=== PATIENT | female | born 1985 | race Caucasian/White ===

== ENCOUNTER 2018-07-25 10:00 | Inpatient (IN) ==
[~2018-07-25 10:00] MED LIST: Methylergonovine 0.2 MG/ML AMPUL IM ONE; miSOPROStol 100 MCG TABLET PO ONE
[2018-07-25] MEDS ORDERED: *HR* Nalbuphine 10 MG/ML AMPUL IVP PRN (10:59)
[2018-07-25] MEDS ORDERED: Metoclopramide 10 MG/2 ML VIAL IVP PRN (10:59)
[2018-07-25] MEDS ORDERED: Ondansetron 4 MG/2 ML VIAL IVP PRN (10:59)
[2018-07-25] MEDS ORDERED: miSOPROStol 25 MCG TABLET VG PRN (10:59)
[2018-07-25] MEDS ORDERED: Naloxone 0.4 MG/ML INJ IVP PRN (10:59)
[2018-07-25] MEDS ORDERED: Famotidine 20 MG/2 ML VIAL IVP PRN (10:59)
[2018-07-25] MEDS ORDERED: Ringers Solution, Lactated 1,000 ML IVC SCH (11:00)
--- NOTE | 2018-07-25 11:13 | OB/GYN History & Physical ---
Date of Encounter: 07/25/18 Time of Encounter: 11:09 Assessment and Plan (1) 39 weeks gestation of Current visit: Yes Status: Acute Admit for IOL GBS negative Cytotec with Intracervical christopher Patient may have nubain/epidural upon request Consider AROM and/or pitocin for augmentation Anticipate vaginal delivery POC per consult with Dr Carmen History of Present Illness Chief complaint: IOL HPI: Ms. Stone is a 32 year old at 39 weeks 5 days that presents to labor an d delivery for elective IOL. She has been seen by Dr Carmen for her care. She has had a normal course. She states positive movement. She denies headache, vision changes, epigastric pain, leaking of fluid, vaginal bleeding/discharge, and contractions. Labs: GBS negative Blood type HIV - Nonreactive Hep B - pending RPR - neg Varicella - positive (immune) Rubella - positive (immune) Past Med Surg Social Fam HX - Family History Father Adopted: Mikes: walt [email or web address] Family Member Ethnicity: Non- Living Status: Still Living Hx Family Cardiac Disorders: Yes (hypertension) Hx Family Respiratory Disorders: No Hx Family Cancer: No Hx Family GI Disorders: No Hx Family Genitourinary Disorders: No Hx Family Endocrine Disorder: No Hx Family Musculoskeletal Disorders: No Hx Family Neuromuscular Disorders: No Hx Family Neurologic Disorders: No Hx Family HEENT Disorders: No Hx Family Autoimmune Disorders: No Hx Family Reproductive Disorders: No Hx Family Psychosocial Disorders: No Hx Family Medical Disorders: No Obstetrical History - Pregnancies : 5 Para: 1 Term: 1 : 0 Ab's: 3 Livin Medications and Allergies Ascorbic Acid [Vitamin C] 120 gm PO DAILY 07/25/18 [History] Calcium Magnesium Caplet 1 tab PO DAILY 07/25/18 [History] Fish Oil + Vitamin D-3 Softgel 1 tab PO DAILY 07/25/18 [History] Pnv Plus Multivit Tab 1 tab PO DAILY 07/25/18 [History] Allergy/AdvReac Type Severity Reaction Status Date / Time No Known Drug Allergies AdvReac Unknown See Verified 07/25/18 10:52 Comments Review of System OB All systems PM: reviewed and no additional remarkable complaints except as stated Exam - Constitutional Constitutional: well developed, well nourished, no acute distress, average body habitus - HEENT HEENT: Normocephaly, Mucus Membranes Moist - Neck Neck exam: full ROM - Lungs Respiratory exam: CTAB - Cardiovascular Cardiovascular exam: RRR, +S1, +S2 - Abdomen Abdomen: Present: bowel sounds normal, gravid, non tender - Extremities Extremities exam: normal capillary refill, normal inspection, radial pulses palpable and symmetrical Deep Tendon Reflex Grade: 2+ Normal - Vulva Vulva: bilateral: normal - Vagina Vagina: Present: normal moisture - Cervix Dilation: 2 Effacement: 80 Station: -2 - Uterus Uterus exam: Present: normal size, normal contour - Anus/Rectum Anus/Rectum: Present: normal perianal skin Results Result Diagrams: 07/25/18 11:10 All other labs normal. - VTE Reasons for not Prescribing Prophylaxis: Treatment not Indicated - Low risk for VTE
[2018-07-25 11:42] LABS: Basophils # 0.1 K/mcL (0.0-0.2); Basophils % 0.5 %; Eosinophils # 0.1 K/mcL (0.0-0.6); Eosinophils % 0.8 %; Hematocrit 34.5 % (35.3-44.9); Hemoglobin 11.9 g/dL (11.5-15.4); Lymphocytes # 3.1 K/mcL (0.6-4.6); Lymphocytes % 22.6 %; Mean Corpuscular HGB Conc 34.5 g/dL (31.6-35.5); Mean Corpuscular Hemoglobin 32.8 pg (28.0-33.3); Mean Platelet Volume 10.1 fL (9.4-12.4); Monocytes # 1.3 K/mcL (0.0-1.3); Monocytes % 9.4 %; Neutrophils # 9.1 K/mcL (1.6-8.9); Platelet Count 206 K/mcL (140-400); Red Blood Count 3.63 M/mcL (3.82-4.97); Segmented Neutrophils % 65.7 %
[2018-07-25 12:04] LABS: Amphetamine Screen,Urine Negative ng/mL (Cutoff=1000); Barbiturate Screen,Urine Negative ng/mL (Cutoff=200); Benzodiazepines Screen,Urine Negative ng/mL (Cutoff=200); Cannabinoid Screen,Urine Negative ng/mL (Cutoff = 50); Cocaine Screen,Urine Negative ng/mL (Cutoff= 300); Opiate Screen,Urine Negative ng/mL (Cutoff=300); Phencyclidine Screen,Urine Negative ng/mL (Cutoff=25)
--- NOTE | 2018-07-25 14:04 | OB Labor Progress Note ---
Date of Encounter: 07/25/18 Time of Encounter: 14:02 Labor Progress Note - Subjective Subjective: Patient breathing through contractions - Vital Signs Vital Signs: VSS - Cervix Cervix: 5/80/-1 - Heart Tones Heart Tones: 120 category I tracing - [place]: Contractions every 3-4 minutes - Interventions Interventions: AROM for large amount of clear fluid. Patient and fetus tolerated well. Patient declines FSE at this time - Plan Plan: Continue routine labor management GBS negative Consider pitocin if needed for augmentation Patient may have nubain/epidural upon request Anticipate vaginal delivery POC per consult with Dr Carmen
--- NOTE | 2018-07-25 16:10 | OB Labor Progress Note ---
Date of Encounter: 07/25/18 Time of Encounter: 16:09 Labor Progress Note - Subjective Subjective: patient tolerating labor well still not wanting any pain medication - Cervix Cervix: /0 - Heart Tones Heart Tones: heart tones 140s reactive - [place]: Contractions every 2 minutes - Plan Plan: Continue current plan planus and to anticipate vaginal delivery
[2018-07-25] MEDS ORDERED: Oxytocin 20 units/ LR 1000 mL 20 UNIT/1,000 ML BAG IVC ONE ×2 (17:08→18:08)
[2018-07-25] MEDS ORDERED: Acetaminophen 325 MG TABLET PO PRN ×2 (18:08→22:29)
[2018-07-25] MEDS ORDERED: Sennosides 8.6 MG TABLET PO PRN ×2 (18:08→22:29)
[2018-07-25] MEDS ORDERED: Ibuprofen 600 MG TABLET PO PRN (18:08)
[2018-07-25] MEDS ORDERED: Oxytocin 20 units/ LR 1000 mL 20 UNIT/1,000 ML BAG IVC SCH ×2 (18:08→22:29)
[2018-07-25] MEDS ORDERED: Benzocaine/Menthol 56 GM AEROSOL SPRAY TP PRN ×2 (18:08→22:29)
--- NOTE | 2018-07-25 18:14 | OB/GYN Procedure Note ---
Delivery - Delivery Date: 07/25/18 Provider: Sukumar Carmen Intrapartum events: none Delivery induction: christopher, misoprostol Delivery augmentation: rupture of membranes Delivery monitor: external FHT, external uterine Anesthesia: local - (s) Infant A Infant Delivery Date: 07/25/18 Infant Delivery Time: 17:19 Presentation: vertex Position: KENDALL Route of delivery: Gender: Female Viability: Viable Pounds: 6 Ounces: 14 Weight Gram: 3.12 kg at 1 minute: 7 at 5 mins: 9 Shoulder Dystocia: not encountered Specimens collected: cord blood Placenta: spontaneous, uterine exploration, retained (membranes) Cord: nuchal cord, true knot, nuchal reduced - Repair Episiotomy: none Laceration Description: Periurethral (bilateral), Perineal - 2nd Degree - Complications Delivery complications: none Delivery comments: Patient is a 32-year-old 5 per 1031 at 39-5/7 weeks who presented for induction of labor secondary to term with favorable cervix patient was induced with a Christopher catheter and oral Cytotec. Catheter was out within one hour of placement at approximately 2-3 hours patient did have artificial rupture membranes clear fluid patient did not require an epidural she progressed appropriately became complete and pushed approximately 3 times delivering a viable female in right occiput anterior presentation at 1719. Was a nuchal 1 loose and reduced there was no meconium the was bulb suctioned on the abdomen. Apgars were 7 at 1 minute and 9 at 5 minute infant weight was 6 lbs. 14 oz. Placenta was then delivered spontaneously with a three-vessel cord she was noted to have a true knot in the cord also. [employer] D[employer] Room Attendant was Dr. Carmen anesthesia local, estimated blood loss was 400 mL. She had a second- degree perineal laceration and bilateral periurethral laceration repaired with a 3-0 and 4-0 Vicryl in usual fashion. Cervix and vagina was visualized intact. She had moderate amount of bleeding uterus was explored she was noted to have retained membranes were removed and bleeding significantly slowed down. No other pathology was seen patient will be observed 2 hours before being taken floor. All needles lap sponge counts were correct 3 - Disposition Mom disposition: stable in LDR disposition: stable in LDR
[2018-07-25] MEDS ORDERED: Ringers Solution, Lactated 1,000 ML ONE ×2 (18:55→23:48)
[2018-07-25] MEDS ORDERED: *HR* Succinylcholine 200 MG/10 ML VIAL IVP ONE (19:25)
[2018-07-25] MEDS ORDERED: Dexamethasone 4 MG/ML VIAL ONE (19:25)
[2018-07-25] MEDS ORDERED: Ondansetron 4 MG/2 ML VIAL ONE (19:25)
[2018-07-25] MEDS ORDERED: *HR* FentaNYL (PF) 100 MCG/2 ML VIAL ONE (19:25)
[2018-07-25] MEDS ORDERED: Lidocaine -MPF 2% 5 ML VIAL ONE (19:25)
[2018-07-25] MEDS ORDERED: *HR* Propofol 200 MG/20 ML VIAL IVP ONE (19:25)
[2018-07-25] MEDS ORDERED: *HR* Midazolam HCl 2 MG/2 ML VIAL ONE (19:25)
--- NOTE | 2018-07-25 19:29 | Anesthesia Evaluation PreOp ---
Date of Encounter: 07/25/18 Time of Encounter: 18:49 - Past History Planned Operation: emergency D&C for retained placenta Cardiac History: Denies any Significant Hx Pulmonary History: Denies Any Significant HX PERFORMANCE IMPROVEMENT DIRECTOR History: Denies Any Significant HX Other Medical History: Other (Crohn's disease) Anesthesia History: No Prior Anesthetic Complications, Past Anesthesia (multiple colonoscopies, breast augmentation. No problems with GA. No FHAP.) : No Alcohol Use: none Drug use: none Medications and Allergies Ascorbic Acid [Vitamin C] 120 gm PO DAILY 07/25/18 [History] Calcium Magnesium Caplet 1 tab PO DAILY 07/25/18 [History] Fish Oil + Vitamin D-3 Softgel 1 tab PO DAILY 07/25/18 [History] Pnv Plus Multivit Tab 1 tab PO DAILY 07/25/18 [History] Allergy/AdvReac Type Severity Reaction Status Date / Time No Known Drug Allergies AdvReac Unknown See Verified 07/25/18 10:52 Comments - Meds/Allergy Pre-op Review Medications Reviewed: Yes Allergies Reviewed: Yes Beta Blockers on Current Med List: No Anesthesia Results - Labs 07/25/18 11:10 Anesthesia Exam VSS Height: 1.62cm Weight: 79 kg NPO (# of Hours): >8 solids, clears 2 hrs. Pain Scale: 0 Pain Scale Used: Numeric (1 - 10) - HEENT Pupil (Motor): Pupils equal, EOMI Mallampati: II Teeth: Normal Oral Opening: Greater than 3 - PERFORMANCE IMPROVEMENT DIRECTOR LOC: Oriented PERFORMANCE IMPROVEMENT DIRECTOR Motor: Normal RUE, Normal LUE, Normal RLE, Normal LLE, Normal Face PERFORMANCE IMPROVEMENT DIRECTOR Sensory: Normal: RUE, LUE, RLE, LLE, Face - Cardiac Rhythm: Regular - Pulmonary Breath Sounds: bilateral Clear Respiratory Effort: Symmetrical Anesthesia Assess/Plan ASA Score: 2, E Level of consciousness: Cooperative, Oriented, Tranquil Anesthetic Plan: General Monitoring Plan: Standard Monitors Recovery Plan: PACU
[2018-07-25] MEDS ORDERED: *HR* Morphine 2 MG/ML SYRINGE IVP PRN (19:31)
[2018-07-25] MEDS ORDERED: *HR* HYDROmorphone (PF) 1 MG/ML SYRINGE IVP PRN (19:31)
[2018-07-25] MEDS ORDERED: Acetaminophen IV 1,000 MG/100 ML INFUS..BTL IVPB ONE (19:31)
[2018-07-25] MEDS ORDERED: Ondansetron 4 MG/2 ML VIAL IVP ONE (19:31)
[2018-07-25] MEDS ORDERED: *HR* Promethazine 25 MG/ML VIAL IVP PRN (19:31)
--- NOTE | 2018-07-25 19:42 | Operative Note ---
Date of procedure: 07/25/18 Pre-op diagnosis: status post vag delivery, active vag bleeding, retained placenta Post-op diagnosis: same Procedure: Dilatation and curettage Complications: none Anesthesia: GETA Surgeon: Sukumar Carmen Was there an nursing assistant present: No Estimated blood loss (cc): 300 Specimen: none Condition: stable Disposition: other (labor and delivery recovery room) Procedure in Detail: patient is status post vag delivery who had some retained placenta which I was able to remove at bedside and felt like a got everything out. Approximate 1 hour after delivering I was called to see the patient due to large amount of blood clot noted on the perineum we did explore the uterus and another approximately 400 mL of blood out of the endometrial cavity. We attempted a bedside curettage with both ring forceps and a banjo curet was able to remove some tissue but became so uncomfortable for the patient because she did not have an epidural in place we decided it would be best for the patient to discontinue the operating room be placed to sleep and D&C performed there. Procedure: Patient was taken the operating room where general anesthesia was found be adequate she was placed in the dorsal lithotomy position prepped and draped in usual fashion. Timeout was then obtained bimanual examination expressed approximately 100 mL of clot and I could not feel any material within the cavity a banjo curet was used D&C was performed removing a little bit more tissue but I feel like most of it in the room patient was observed started to bleed moderately again cavity was reevaluated again could not feel anything in the endometrium 0.2 mg Methergine IM was then given uterus massaged and bleeding stopped we observe the patient again for another 5 minutes no active bleeding noted her second-degree perineal laceration had Apart from All the Manipulation This Was Reapproximated Again with a 3-0 Vicryl in Usual Fashion. 600 g of Cytotec Was Then Placed Rectally Endometrial Cavity Was Palpated One More Time Cavity Was Completely Contracted down and No Significant Bleeding Noted. [place] Catheter Was Placed at This Time and the Left in Place until We Know Patient Is Not Actively Bleeding Anymore. The Procedure Was Then Terminated All [place] Lap Sponge Counts Were Correct 3 She Did Receive Preoperative Antibiotics Patient Was Taken Recovery Room and to the Floor Once Stable.
--- NOTE | 2018-07-25 21:19 | Anesthesia Evaluation Post Op ---
Date of Encounter: 07/25/18 Time of Encounter: 21:05 - Vital Signs Vital Signs: VSS throughout PACU stay - Lungs Lungs: Clear Ascult./Percussion - Airway Airway: Non-obstructed - Cardiovascular Regular Rate - Mental Status Mental Status: Alert & Oriented, Answers Appropriately - Pain Pain Scale: 3 Pain Scale used: Numeric (1 - 10) - Nausea Vomiting Nausea Vomiting: Not Present - Hydration Hydration: NPO, [place] catheter - Discharge PostOp Status: Transfer Patient to floor
[2018-07-25] MEDS ORDERED: *HR* OxyCODONE/APAP 5/325 TABLET PO PRN (22:29)
[2018-07-26] MEDS: Ibuprofen 600 MG TABLET PO PRN ×4 (02:11→20:50)
--- NOTE | 2018-07-26 03:38 | Anesthesia Evaluation Post Op ---
Date of Encounter: 07/26/18 Time of Encounter: 00:10 - Vital Signs Vital Signs: VSS throughout pacu stay. - Lungs Lungs: Clear Ascult./Percussion - Airway Airway: Non-obstructed - Cardiovascular Regular Rate - Mental Status Mental Status: Alert & Oriented, Answers Appropriately - Pain Pain Scale: 3 Pain Scale used: Numeric (1 - 10) - Nausea Vomiting Nausea Vomiting: Not Present - Hydration Hydration: NPO, [place] catheter - Discharge PostOp Status: Transfer Patient to floor
[2018-07-26 04:21] LABS: Basophils % 0.2 %; Hematocrit 25.6 % (35.3-44.9); Immature Granulocytes % 0.8 % (0-4); Lymphocytes # 2.7 K/mcL (0.6-4.6); Lymphocytes % 12.8 %; Mean Corpuscular HGB Conc 33.6 g/dL (31.6-35.5); Mean Corpuscular Volume 98.1 fL (83.0-100.0); Monocytes # 1.3 K/mcL (0.0-1.3); Monocytes % 6.1 %; Platelet Count 176 K/mcL (140-400); Red Blood Count 2.61 M/mcL (3.82-4.97); Segmented Neutrophils % 80.1 %
[2018-07-26 04:46] LABS: Hemoglobin 8.6 g/dL (11.5-15.4); Neutrophils # 17.1 K/mcL (1.6-8.9)
[2018-07-26] MEDS: Prenatal Vit/FA 1 EACH TABLET PO SCH (08:43)
[2018-07-26] MEDS ORDERED: Prenatal Vit/FA 1 EACH TABLET PO SCH (09:00)
--- NOTE | 2018-07-26 10:09 | OB/GYN Progress Note ---
Date of Encounter: 07/26/18 Time of Encounter: 10:05 - Assessment and Plan (1) Vaginal delivery Current Visit: Yes Status: Acute Continue routine care Ice pack when necessary Dermoplast when necessary Anticipate discharge home tomorrow (2) anemia Current Visit: Yes Status: Acute Recheck CBC tomorrow morning Increase iron supplementation to twice a day (3) Breast feeding status of mother Current Visit: Yes Status: Acute consult when necessary Subjective - Subjective Principal diagnosis: s/p with PP D&C Interval history: Feeling well. Out of bed without dizziness. Some perineal discomfort-using ice pack. Cramping minimal, using ibuprofen. every 2-3 hours. Some nipple soreness. Voiding without difficulty. Passing flatus, no BM yet. Tolerating regular diet. Patient reports: appetite normal, voiding normally, pain well controlled, ambulating normally [place]: doing well, nursing well Objective - Latest Vital Signs Latest vital signs: Vital Signs Temp Pulse Resp BP Pulse Ox 07/26/18 08:30 98.4 F 77 12 116/77 97 07/26/18 03:50 99.0 F 85 16 115/67 97 07/26/18 00:15 98.2 F 88 16 128/76 98 07/25/18 23:15 97.6 F 83 14 113/79 97 07/25/18 22:45 98.1 F 82 14 117/78 97 07/25/18 22:15 98.8 F 78 16 115/83 98 Intake and Output 07/25/18 07/26/18 07/26/18 23:59 07:59 15:59 Intake Total 600 / 600 240 / 240 Output Total 275 / 275 1830 / 1830 Balance 325 / 325 -1590 / -1590 Intake: Oral 240 / 240 Other 600 / 600 Output: Catheter 275 / 275 1830 / 1830 Other: Weight 74.5 kg 71.214 kg Patient Weight 07/26/18 23:59 Weight 71.214 kg - Exam Lungs: bilateral: normal Chest: Normal S1, Normal S2 Extremities: Present: normal Abdomen: Present: normal appearance, soft Uterus: Present: normal, firm Uterus Position: 1 Finger Below Umbilicus, Midline Comments: Breasts: Soft, nontender; nipples intact without erythema - Labs Labs: Laboratory Results - last 24 hr 07/25/18 07/25/18 07/25/18 11:10 11:10 11:20 WBC 13.8 H RBC 3.63 L Hgb 11.9 Hct 34.5 L MCV 95.0 MCH 32.8 MCHC 34.5 RDW 13.0 Plt Count 206 MPV 10.1 Immature Gran % 1.0 Seg Neutrophils % 65.7 Lymphocytes % 22.6 Monocytes % 9.4 Eosinophils % 0.8 Basophils % 0.5 Neutrophils # 9.1 H Lymphocytes # 3.1 Monocytes # 1.3 Eosinophils # 0.1 Basophils # 0.1 Urine Opiates Screen Negative Ur Barbiturates Screen Negative Ur Phencyclidine Scrn Negative Ur Amphetamines Screen Negative U Benzodiazepines Scrn Negative Urine Cocaine Screen Negative U Marijuana (THC) Screen Negative Ur Drug Screen Interp See Below Hep Bs Antigen Nonreactive 07/26/18 03:59 WBC 21.4 H D RBC 2.61 L Hgb 8.6 L D Hct 25.6 L MCV 98.1 MCH 33.0 MCHC 33.6 RDW 13.0 Plt Count 176 MPV 10.0 Immature Gran % 0.8 Seg Neutrophils % 80.1 Lymphocytes % 12.8 Monocytes % 6.1 Eosinophils % 0.0 Basophils % 0.2 Neutrophils # 17.1 H Lymphocytes # 2.7 Monocytes # 1.3 Eosinophils # 0.0 Basophils # 0.0 Urine Opiates Screen Ur Barbiturates Screen Ur Phencyclidine Scrn Ur Amphetamines Screen U Benzodiazepines Scrn Urine Cocaine Screen U Marijuana (THC) Screen Ur Drug Screen Interp Hep Bs Antigen
[2018-07-26 20:48] VITALS: BP 105/56
[2018-07-27] MEDS: Ibuprofen 600 MG TABLET PO PRN (03:50)
[2018-07-27 05:55] LABS: Basophils # 0.1 K/mcL (0.0-0.2); Basophils % 0.5 %; Eosinophils # 0.1 K/mcL (0.0-0.6); Eosinophils % 0.9 %; Hematocrit 24.2 % (35.3-44.9); Immature Granulocytes % 1.1 % (0-4); Lymphocytes # 3.3 K/mcL (0.6-4.6); Lymphocytes % 23.5 %; Mean Corpuscular HGB Conc 33.1 g/dL (31.6-35.5); Mean Corpuscular Hemoglobin 33.2 pg (28.0-33.3); Mean Corpuscular Volume 100.4 fL (83.0-100.0); Mean Platelet Volume 9.3 fL (9.4-12.4); Monocytes % 7.5 %; Neutrophils # 9.2 K/mcL (1.6-8.9); Platelet Count 177 K/mcL (140-400); Red Blood Count 2.41 M/mcL (3.82-4.97); Red Cell Distribution Width 13.7 % (11.5-14.5); Segmented Neutrophils % 66.5 %
[2018-07-27] MEDS: Prenatal Vit/FA 1 EACH TABLET PO SCH (08:29)
--- NOTE | 2018-07-27 10:28 | Discharge Summary ---
Date of Encounter: 07/27/18 Time of Encounter: 10:25 - Discharge Diagnosis (1) Vaginal delivery Priority: Primary Status: Acute Comments: Continue routine care. Discharge home today. Patient tolerating regular diet, voiding without difficulty, no bowel movement yet. Follow-up in 4 weeks (2) anemia Priority: Secondary Status: Acute Comments: Patient asymptomatic with hemoglobin of 8.0 Discharge home with ferrous sulfate twice a day (3) Breast feeding status of mother Priority: Secondary Status: Acute Comments: support as needed Patient states she already has a breast pump at home - Discharge Medications Prescriptions: Ibuprofen [Motrin] 600 mg PO Q6HR PRN #60 tablet PRN Reason: Cramping Docusate [Colace] 100 mg PO BID #60 capsule Ferrous Sulfate 325 mg PO BIDWM #60 tablet Home Medications: Ascorbic Acid [Vitamin C] 120 gm PO DAILY 07/25/18 [History] Calcium Magnesium Caplet 1 tab PO DAILY 07/25/18 [History] Fish Oil + Vitamin D-3 Softgel 1 tab PO DAILY 07/25/18 [History] Pnv Plus Multivit Tab 1 tab PO DAILY 07/25/18 [History] Benzocaine/Menthol [place] [Dermoplast [place]] 1 appl TP QID PRN aerosol 07/27/18 [Rx] Docusate [Colace] 100 mg PO BID #60 capsule 07/27/18 [Rx] Ferrous Sulfate 325 mg PO BIDWM #60 tablet 07/27/18 [Rx] Ibuprofen [Motrin] 600 mg PO Q6HR PRN #60 tablet 07/27/18 [Rx] Allergies/Adverse Reactions: Allergy/AdvReac Type Severity Reaction Status Date / Time No Known Drug Allergies AdvReac Unknown See Verified 07/25/18 10:52 Comments Data Procedures and tests throughout hospitalization: Laboratory Tests 07/25/18 07/25/18 07/25/18 11:10 11:10 11:20 WBC 13.8 H RBC 3.63 L Hgb 11.9 Hct 34.5 L MCV 95.0 MCH 32.8 MCHC 34.5 RDW 13.0 Plt Count 206 MPV 10.1 Immature Gran % 1.0 Seg Neutrophils % 65.7 Lymphocytes % 22.6 Monocytes % 9.4 Eosinophils % 0.8 Basophils % 0.5 Neutrophils # 9.1 H Lymphocytes # 3.1 Monocytes # 1.3 Eosinophils # 0.1 Basophils # 0.1 Urine Opiates Screen Negative Ur Barbiturates Screen Negative Ur Phencyclidine Scrn Negative Ur Amphetamines Screen Negative U Benzodiazepines Scrn Negative Urine Cocaine Screen Negative U Marijuana (THC) Screen Negative Ur Drug Screen Interp See Below Hep Bs Antigen Nonreactive 07/26/18 07/27/18 03:59 05:31 WBC 21.4 H D 13.8 H RBC 2.61 L 2.41 L Hgb 8.6 L D 8.0 L Hct 25.6 L 24.2 L MCV 98.1 100.4 H MCH 33.0 33.2 MCHC 33.6 33.1 RDW 13.0 13.7 Plt Count 176 177 MPV 10.0 9.3 L Immature Gran % 0.8 1.1 Seg Neutrophils % 80.1 66.5 Lymphocytes % 12.8 23.5 Monocytes % 6.1 7.5 Eosinophils % 0.0 0.9 Basophils % 0.2 0.5 Neutrophils # 17.1 H 9.2 H Lymphocytes # 2.7 3.3 Monocytes # 1.3 1.0 Eosinophils # 0.0 0.1 Basophils # 0.0 0.1 Urine Opiates Screen Ur Barbiturates Screen Ur Phencyclidine Scrn Ur Amphetamines Screen U Benzodiazepines Scrn Urine Cocaine Screen U Marijuana (THC) Screen Ur Drug Screen Interp Hep Bs Antigen Labs on day of discharge: Labs from last 24 hours 07/27/18 05:31 WBC 13.8 H RBC 2.41 L Hgb 8.0 L Hct 24.2 L MCV 100.4 H MCH 33.2 MCHC 33.1 RDW 13.7 Plt Count 177 MPV 9.3 L Immature Gran % 1.1 Seg Neutrophils % 66.5 Lymphocytes % 23.5 Monocytes % 7.5 Eosinophils % 0.9 Basophils % 0.5 Neutrophils # 9.2 H Lymphocytes # 3.3 Monocytes # 1.0 Eosinophils # 0.1 Basophils # 0.1 Date of admission: 07/25/18 10:14 Primary care physician: PCP NONE Consults: 07/25/18 18:08 Consult to [employer] [CONS] Routine Comment: Vaginal delivery, consult needed Discharging clinician: Clare Ramirez Anticipated date of discharge: 07/27/18 - Patient Status Disposition: Home, Self-Care Condition: Good Functional capacity at discharge: independent ambulation Overall status at discharge: patient is progressing back to baseline - Discharge Instructions Instructions: Your [place] Appearance (DC), Lay Person CPR on Newborns (DC), Caring for Your Breastfed Baby (GEN) Follow Up With: NONE,PCP [Primary Care Provider] - Additional Instructions: ATTEND FOLLOW-UP APPOINTMENT - Diet and Activity Activity: resume usual activities as tolerated Diet: regular diet Hospital Course Reason for admission: induction of labor Delivery: Episiotomy: none Laceration: 2nd degree, other (periurethral) Other procedures: curettage complications: retained placenta Discharge diagnosis: IUP at term delivered [place] baby: female Hospital course: Patient feeling well today requesting to go home. Tolerating regular diet, voiding without difficulty, no bowel movement yet. Pain well-controlled with Motrin. Patient is asymptomatic with a hemoglobin of 8.0. Will send home with ferrous sulfate twice daily. Vital signs stable - Delivery Date: 07/25/18 Provider: Sukumar Carmen Intrapartum events: none Delivery induction: christopher, misoprostol Delivery augmentation: rupture of membranes Delivery monitor: external FHT, external uterine Anesthesia: local - Infant (s) A Delivery Date: 07/25/18 Infant Delivery Time: 17:19 Presentation: vertex Position: KENDALL Route of delivery: Gender: Female Viability: Viable Pounds: 6 Ounces: 14 Weight Gram: 3.12 kg at 1 minute: 7 at 5 mins: 9 Shoulder Dystocia: not encountered Specimens collected: cord blood Placenta: spontaneous, uterine exploration, retained (membranes) Cord: nuchal cord, true knot, nuchal reduced - Repair Episiotomy: none Laceration Description: Periurethral (bilateral), Perineal - 2nd Degree - Complications Delivery complications: none Delivery comments: Patient is a 32-year-old 5 per 1031 at 39-5/7 weeks who presented for induction of labor secondary to term with favorable cervix patient was induced with a Christopher catheter and oral Cytotec. Catheter was out within one hour of placement at approximately 2-3 hours patient did have artificial rupture membranes clear fluid patient did not require an epidural she progressed appropriately became complete and pushed approximately 3 times delivering a viable female infant in right occiput anterior presentation at 1719. Was a nuchal 1 loose and reduced there was no meconium the infant was bulb suctioned on the abdomen. Apgars were 7 at 1 minute and 9 at 5 minute weight was 6 lbs. 14 oz. Placenta was then delivered spontaneously with a three-vessel cord she was noted to have a true knot in the cord also. Viscosity Inspector was Dr. Carmen anesthesia local, estimated blood loss was 400 mL. She had a second- degree perineal laceration and bilateral periurethral laceration repaired with a 3-0 and 4-0 Vicryl in usual fashion. Cervix and vagina was visualized intact. She had moderate amount of bleeding uterus was explored she was noted to have retained membranes were removed and bleeding significantly slowed down. No other pathology was seen patient will be observed 2 hours before being taken floor. All needles lap sponge counts were correct 3 - Disposition Mom disposition: stable in LDR [place] disposition: stable in LDR Time Attestation: Total time spent providing and/or coordinating discharge services: Time Spent: Less than 30 minutes Exam - Constitutional Vitals: Temp Pulse Resp BP Pulse Ox 97.9 F 87 16 105/56 99 07/26/18 19:40 07/26/18 19:40 07/26/18 19:40 07/26/18 19:40 07/26/18 19:40 General appearance IM: A&O X 3, pleasant, no acute distress, answers questions appropriately - Respiratory Respiratory exam: Present: CTAB - Cardiovascular Cardiovascular exam IM: Present: RRR, +S1, +S2 - GI/Abdominal GI/Abdominal exam IM: normal bowel sounds, soft - Rectal Rectal exam: deferred - Uterine Tone: Firm Uterus Position: At Umbilicus - Extremities Exam Extremities exam IM: Present: full ROM, normal capillary refill, normal inspection - Neurological Exam Neurological exam: alert, normal gait, oriented X3
== END 2018-07-27 11:35 | disposition home or self-care (01) | DRG 798 ==
LOC: 1NENULAB 10:14 → 1NENUOBS 22:28
PROVIDERS: ADMIT Advanced Practice Midwife; ATTEND Advanced Practice Midwife